=== PATIENT | female | born 1995 | race Caucasian/White ===

== ENCOUNTER 2022-11-29 12:54 | Emergency (ER) | payer OTHER, SELFPAY ==
--- NOTE | ~2022-11-29 | XR_ITS ---
EXAMINATION: XR abdomen/kub 1V DATE: 11/29/2022 13:50 INDICATION: Low abdominal pain. TECHNIQUE: A supine view of the abdomen on 2 radiographs was obtained. COMPARISON: None. FINDINGS: There are no dilated loops of bowel. There is a small volume of stool in the colon. Calcifi cations in the pelvis are likely phleboliths. There is a 2 mm calcification in the area of left urete rovesicular junction. IMPRESSION: 1. Normal bowel gas pattern. 2. 2 mm calcification in the area of left ureterovesicular junction, which may be a phlebolith or di stal ureteral stone. Reviewed, dictated and finalized at location A. [employer] IMPRESSION: 1. Normal bowel gas pattern. 2. 2 mm calcification in the area of left ureterovesicular junction, which may be a phlebolith or distal ureteral stone.
--- NOTE | 2022-11-29 13:06 | ED.FEMALEGU ---
HPI - Female Genitourinary General Stated complaint: Pain in right low back; travel to abdomen Time Seen by Provider: 11/29/22 13:27 Source: patient and RN notes reviewed Mode of arrival: ambulatory Limitations: no limitations History of Present Illness HPI Narrative: 27 year old female presents with concern for right lower quadrant abdominal pain. Reports pain started on Friday with back pain that radiated around to her abdomen her back is no longer acutely painful but feels tense. She reports the right lower abdominal pain is severe, hurts worse with movement. Reports she had swelling in her right lower abdomen this morning. She reports pain worsened with a bowel movement. Reports she had constipation and diarrhea. Reports the pain makes her feel shaky and sweaty. She reports an episode of vomiting yesterday. She denies dysuria, frequency, urgency. MD elicited complaint: flank pain and other (abdominal pain) Related Data Home Medications Medication Instructions Recorded Confirmed Otc Vitamin B12 11/29/22 ergocalciferol (vitamin D2) 1,250 11/29/22 mcg (50,000 unit) capsule fluoxetine 40 mg capsule mg 11/29/22 omeprazole 20 mg capsule,delayed mg 11/29/22 release Allergies Allergy/AdvReac Type Severity Reaction Status Date / Time latex Allergy Mild Rash Verified 11/29/22 13:26 promethazine Allergy Mild Rash Unverified 11/29/22 13:26 Review of Systems Review of Systems: CONSTITUTIONAL: Denies malaise, chills, or fever. Reports feeling shaky and sweaty CARDIOVASCULAR: Denies chest pain, palpitations, or edema. RESPIRATORY: Denies cough or dyspnea. GASTROINTESTINAL: Reports right lower quadrant abdominal pain, nausea, vomiting, diarrhea GENITOURINARY: Denies dysuria, frequency, urgency, suprapubic pressure. Denies flank pain or hematuria. SKIN: Denies rash or itching. MUSCULOSKELETAL: Reports right back pain. Denies myalgia. All systems reviewed & are unremarkable except as noted in HPI and below PMFSH Comments At time of signature, agree with nursing past medical, surgical, social and family history. There is no relevant family history pertinent to the presenting complaint Exam Narrative: GENERAL: Well-appearing, well-nourished, and in no acute distress. HEAD: Normocephalic. EYES: PERRLA, conjunctivae clear. NECK: Supple. No lymphadenopathy CHEST: Clear to auscultation. No respiratory distress. HEART: Regular rate and rhythm. ABDOMEN: Soft, periumbilical tenderness, right lower quadrant tenderness with guarding, mildly distended, normal active bowel sounds SKIN: Warm, dry, no rash. NEURO: Alert and oriented x3. PSYCH: Normal mood and affect Course Course Emergency Course: Patient is aware of, understands and agrees to to be sent to the emergency room for further evaluation. Patient agrees to proceed directly to the emergency department. Portions of this record may have been created with voice recognition software Level of Care: Express Care Visit Vital Signs Vital signs: Reviewed. Transfer Transfered to: [facility] Transportation: Other (Private vehicle) Transfer rationale: Right lower abdominal pain Accepting physician: Rosie GALICIA - Female Genitourinary MDM Narrative Medical decision making narrative: Exam findings for further evaluation emergency department; patient is non-toxic appearing and is in no distress. Differential Diagnosis Differential diagnosis: Likely urinary tract infection and cystitis Imaging Data Radiologist's impression: EXAMINATION: XR abdomen/kub 1V DATE: 11/29/2022 13:50 INDICATION: Low abdominal pain. TECHNIQUE: A supine view of the abdomen on 2 radiographs was obtained. COMPARISON: None. FINDINGS: There are no dilated loops of bowel. There is a small volume of stool in the colon. Calcifications in the pelvis are likely phleboliths. There is a 2 mm calcification in the area of left ureterovesicular junction. IMPRESSION: 1.? Normal bowel gas
[2022-11-29 13:11] VITALS: BP 129/90; PULSE 78; RESP 14; TEMP 36.6; O2SAT 100
== END 2022-11-29 14:14 | disposition short-term general hospital (02) ==
PROVIDERS: Emergency Provider Nurse Practitioner; PCP Family Medicine
DX: R10.31 Right lower quadrant pain (principal); R10.33 Periumbilical pain; K21.9 Gastro-esophageal reflux disease without esophagitis
CPT/HCPCS: 74018; 81003; 99213; G0463